=== PATIENT | male | born 1970 | race Caucasian/White ===

== ENCOUNTER 2024-10-10 19:34 | Emergency (ER) | payer OTHER, SELFPAY ==
[2024-10-10 19:35] VITALS: BP 143/97; PULSE 108; RESP 18; TEMP 37.2; O2SAT 94; BMI 40.8
--- NOTE | 2024-10-10 20:57 | EDS_ITS ---
HPI History of Present Illness Chief Complaint: Abd Pain Narrative Narrative: Patient is a 54-year-old male with past medical history of hypertension who presented to the emergency department chief complaint of left rib pain. Patient states had a fall on Thursday after chasing his horse and he states that he is unsure what he landed on. He states that he is following up with chiropractor this afternoon and noted that after attempting to adjust him he was concerned that he may have a AAA therefore they advised to go to the ER to be evaluated. Patient states that when he was being adjusted when he pushed on his back he was having significant chest pain in the front which was concerning for them. Patient states that when he is sitting and resting he has no pain [facility] Medical History High blood pressure Home Medications ?Medication ?Instructions ?Recorded ?Last Taken ?Type cyclobenzaprine 10 mg tablet 10 mg PO TID PRN muscle s pasm #14 10/10/24 Unknown Rx tabs lidocaine 5 % topical patch 1 patch topical DAILY #15 ea 10/10/24 Unknown Rx ondansetron 4 mg disintegrating 4 mg PO Q6H PRN nausea and 10/10/24 Unknown Rx tablet vomiting #20 tabs oxycodone-acetaminophen 5 mg-325 1 tab PO Q6H PRN pain 3 days #12 10/10/24 Unknown Rx mg tablet (Endocet) tabs Allergy/AdvReac Type Severity Reaction Status Date / Time No Known Allergies Allergy Verified 10/10/24 19:38 Family History no significant family his Surgical History Hx of eye surgery Social History Smoking Status: Current some day smoker tobacco type: cigarettes ROS ROS ED ROS Narrative Constitutional: Denies any fevers, chills, headaches, Eyes: Denies change in vision double vision blurred vision Cardiovascular: Denies chest pain Respiratory: Denies shortness of breath Abdomen: Denies nausea vomit diarrhea : Denies urinary symptoms Neurological: Denies any numbness, wheeze, tingling Musculoskeletal: Complains of left rib pain as noted above Skin: Denies any rashes or lesions EXAM Physical Exam Narrative Exam Narrative: General: Patient was lying bed rest comfortably did not appear to be in acute distress Head: Atraumatic, normocephalic Eyes: PERRL bilaterally, EOMI blood, no conjunctival injection noted Neck: Soft, supple, trachea midline Cardiovascular: Regular rate and rhythm Respiratory: Clear to auscultation bilaterally Abdomen: Soft, nondistended, no tenderness palpation Musculoskeletal: Tenderness palpation over the left rib cage laterally Extremities: Radial pulses +2/4 the bilateral extremities, +5/5 strength noted in the bilateral upper and lower extremities Neurological: Patient following commands knew that he was at [facility] years 2024 Skin: Warm, dry, intact no rashes or lesions noted Const Vital Signs: 10/10/24 19:35 10/10/24 21:35 Temperature 98.9 F Temperature Source Oral Pulse Rate 108 H 90 Respiratory Rate 18 18 Blood Pressure 143/97 H 164/102 H Blood Pressure Mean 112 122 Pulse Ox 94 93 Oxygen Delivery Method Room Air Room Air MDM MDM MDM Narrative Medical decision making narrative: Patient is a 54-year-old male who presented to the emergency department chief complaint of fall, left rib pain and concern for AAA per his chiropractor. On the differential diagnosis includes but limited to musculoskeletal strain, rib fractures, pneumothorax, AAA. Once workup is obtained reviewed he will be reevaluated. Patient was given morphine Zofran Patient BMP reviewed shows sodium 141, potassium normal 4.3, creatinine normal at 0.78. Patient's CTA chest abdomen pelvis reviewed and showed acute fractures of the left anterior lateral 2nd through 8th ribs. Trace left pleural effusion possible hemothorax no pneumothorax. Scattered left dependent atelectasis possible component of mild pulmonary contusions given adjacent rib fractures. No acute vascular or intra-abdominal visceral injuries no aortic aneurysm or dissection. Mild subcutaneous contusion changes along the left body wall. Focal skin thickening and subcutaneous fat stranding in the anterior right lower abdominal wall/groin region with mildly prominent inguinal lymph nodes may be inflammatory such as cellulitis. I went and to discuss the results with the patient and discussed transfer. Patient states that he does not want transferred he wants to go home. I notified the patient that he will have to leave AGAINST MEDICAL ADVICE we discussed the risks and benefits of this such as worsening pulmonary contusions leading to respiratory failure and ultimately respiratory . He verbalized understanding of this as well as his significant other at bedside patient will be given incentive spirometer. Patient was advised to use Tylenol for mild to moderate pain he will given prescriptions for cyclobenzaprine, Lidoderm patch, Percocet and Zofran. He was advised to not operate anything out of the influence of the muscle relaxant or the narcotic. He is encouraged return with worsening symptoms or any concerns. He is agreeable this plan all question concerns answered is discharged home in stable condition. Lab Data Labs: Laboratory Results - last 24 hr 10/10/24 21:07 Sodium 141 Potassium 4.3 Chloride 106 Carbon Dioxide 24.4 Anion Gap 10 BUN 10 Creatinine 0.78 Estim Creat Clear Calc 125.86 Est GFR (MDRD) Non-Af 105 BUN/Creatinine Ratio 12.8 Glucose 129 H Calcium 8.8 Radiography Diagnostic Testing: Clinical Impression(s) from Imaging Studies Chest/Abdomen/Pelvis CTA 10/10/24 21:16 IMPRESSION: 1. Acute fractures of the left anterolateral 2nd-8th ribs. 2. Trace left pleural effusion, possibly hemothorax. No pneumothorax. Scattered left dependent atelectasis, possible component of mild pulmonary contusions given adjacent rib fractures. 3. No acute vascular or intra-abdominal visceral injuries. No aortic aneurysm or dissection. 4. Mild subcutaneous contusional changes along the left body wall. 5. Focal skin thickening and subcutaneous fat stranding in the anterior right lower abdominal wall/groin region, with mildly prominent inguinal lymph nodes; may be inflammatory such as cellulitis. Reading Location: [facility] Discharge Plan Triage Chief Complaint: Abd Pain ED Provider: Moe Sahu Dx/Rx/DC Orders Clinical Impression: Multiple fractures of ribs, Contusion of left lung, Pleural effusion, Fall, Hypertension Prescriptions: New lidocaine 5 % adhesive patch,medicated 1 patch topical DAILY Qty: 15 0RF Rx Instructions: leave on most painful area for up to 12 hrs cyclobenzaprine 10 mg tablet 10 mg PO TID PRN (Reason: muscle spasm) Qty: 14 0RF ondansetron 4 mg tablet,disintegrating 4 mg PO Q6H PRN (Reason: nausea and vomiting) Qty: 20 0RF oxycodone-acetaminophen [Endocet] 5-325 mg tablet 1 tab PO Q6H PRN (Reason: pain) 3 Days Qty: 12 0RF Primary Care Provider: Care Physician,No Primary Referrals: Parvez Hall MD [Med Staff - [employer]] - Care Physician,No Primary [Primary Care Provider] - Activity Restrictions/Additional Instructions: Use Tylenol for mild to moderate pain, use the Lidoderm patch, muscle relaxer, Endocet as prescribed. Do not operate anything under the influence of the Endocet or the muscle relaxer. Make sure you take the Zofran the dissolvable tablet underneath your tongue with the Endocet as this will upset your stomach and make you nauseous. Use incentive spirometer as we discussed to prevent you from developing pneumonia. Return with worsening symptoms or any other concerns. You were provided a hard copy of your CTA results Print Language: Cook Islander Disposition Disposition: Against Medical Advice
--- NOTE | 2024-10-10 21:16 | CT_ITS ---
PROCEDURE: CTA CHST, ABD, PEL W AND/OR WO 10/10/2024 REASON FOR EXAM: CONCERN FOR AAA. Recent fall, bruised ribs, abdominal pain TECHNIQUE: CTA CHST, ABD, PEL W AND/OR WO coronal and Sagittal reconstruction series were provided. 3D and MIP multiplanar post processing was performed. One or more dose reduction techniques were used (e.g., Automated exposure control, adjustment of the mA and/or kV according to patient size, use of iterative reconstruction technique. CONTRAST: Isovue 370 VOLUME: 95 mL RADIATION DOSE SUMMARY: DLP: 2106 mGycm COMPARISON: None available. FINDINGS: VASCULATURE: The aorta is normal in course and caliber. No aneurysm or dissection. No significant atherosclerotic disease. Major branches of the celiac axis, SMA, MAURISIO, bilateral renal and iliac arteries are normal in course and caliber. LUNGS/PLEURA: Trace left pleural effusion, possibly hemothorax with associated mild left basilar dependent/passive atelectasis. No pneumothorax. Patent central airways. Bilateral calcified granulomas and predominantly right infrahilar calcified lymph nodes, likely prior granulomatous process. MEDIASTINUM: No mediastinal hematoma. No significant lymphadenopathy. HEART: Normal in size. No pericardial effusion. No significant coronary artery calcification. HEPATOBILIARY: Unremarkable liver. Unremarkable gallbladder, no biliary ductal dilatation. Normal sized spleen, with several punctate calcified granulomas. Mild diffuse fatty replacement of the pancreas, no ductal dilatation. No evidence for acute visceral injury. GENITOURINARY: Normal in size with symmetric enhancement. No urolithiasis or hydronephrosis. Several bilateral small simple appearing renal cysts. Mild bilateral nonspecific perinephric fat stranding, likely chronic. Unremarkable adrenal glands. Unremarkable urinary bladder. Nonenlarged prostate. GI TRACT: Normal in caliber. No active inflammatory process. Normal appendix. PERITONEUM / RETROPERITONEUM: No free fluid or air. No intra-abdominal lymphadenopathy. Multiple prominent bilateral inguinal lymph nodes, nonspecific but may be reactive. MUSCULOSKELETAL: Acute fractures of the anterolateral left 2nd through 8th ribs, with minimal to mild displacement. No additional acute fracture or dislocation. Mild degenerative changes of the spine. Mild subcutaneous contusional changes to the left lateral chest wall and left flank/gluteal region. Nonspecific focal subcutaneous stranding/skin thickening in the right lower abdominal wall/groin region. CT/CTA Chst, Abd, Pel W and/or WO IMPRESSION: 1. Acute fractures of the left anterolateral 2nd-8th ribs. 2. Trace left pleural effusion, possibly hemothorax. No pneumothorax. Scatter ed left dependent atelectasis, possible component of mild pulmonary contusions given adjacent rib fractures. 3. No acute vascular or intra-abdominal visceral injuries. No aortic aneurysm o r dissection. 4. Mild subcutaneous contusional changes along the left body wall. 5. Focal skin thickening and subcutaneous fat stranding in the anterior right l ower abdominal wall/groin region, with mildly prominent inguinal lymph nodes; may be inflammatory such as cellulitis. Reading Location: [id number]
[2024-10-10 21:35] VITALS: BP 164/102; PULSE 90; RESP 18; O2SAT 93
[2024-10-10 21:50] LABS: Anion Gap 10 (5-15); BUN 10 mg/dL (4-19); BUN/Creat Ratio 12.8 RATIO (10-20); Calcium,Total 8.8 mg/dL (7.6-11.0); Carbon Dioxide 24.4 mmol/L (21.0-32.0); Chloride 106 mmol/L (98-108); Estimated Creatinine Clearance 125.86 ml/min (50-250); Glucose 129 mg/dL (70-99); Potassium 4.3 mmol/L (3.3-5.1)
[2024-10-10 22:57] VITALS: BP 148/105; PULSE 90; RESP 16; TEMP 36.9; O2SAT 94
[2024-10-10 23:00] LABS: AST(SGOT) 28 U/L (<=37); Alanine Aminotransfer ALT/SGPT 24 U/L (<=46); Albumin, Serum 3.4 g/dL (3.5-5.0); Alkaline Phosphatase 91 U/L (40-129); Bilirubin, Direct 0.11 mg/dL (0.00-0.30); Globulin 4.2 g/dL (2.2-4.2)
== END 2024-10-10 23:05 | disposition left against medical advice (07) ==
PROVIDERS: Emergency Provider Emergency Medicine; Visit Provider Emergency Medicine
DX: S22.42XA Multiple fractures of ribs, left side, initial encounter for closed fracture (principal); J90 Pleural effusion, not elsewhere classified; R10.9 Unspecified abdominal pain; S27.321A Contusion of lung, unilateral, initial encounter; I10 Essential (primary) hypertension; Y93.89 Activity, other specified; W19.XXXA Unspecified fall, initial encounter; F17.210 Nicotine dependence, cigarettes, uncomplicated
CPT/HCPCS: 71275; 74174; 80048; 80076; 96374; 96375; 99283; Q9967; A4216; J2405